=== PATIENT | male | born 1995 | race Caucasian/White ===

== ENCOUNTER 2021-10-08 13:05 | Emergency (ER) | payer BC ==
[~2021-10-08] VITALS: Ht 180.3 cm; Wt 50.8 kg
--- NOTE | 2021-10-08 13:10 | NUR ---
ER BED [address] [facility]. SOB&COUGH x 2 DAYS. SOLU MEDROL 125MG IM AND. NO SOB. NO SIGNS OF DISTRESS
[2021-10-08] MEDS ORDERED: ALBUTEROL FS 2.5 MG/3 ML VIAL.NEB CONTNEB ONE (13:30)
[2021-10-08] MEDS ORDERED: IPRATROPIUM NEB FS 0.5 MG/2.5 ML AMPUL.NEB NEB ONE (13:30)
[2021-10-08] MEDS ORDERED: predniSONE 20 MG TABLET PO ONE (13:30)
[2021-10-08] MEDS ORDERED: predniSONE 20 MG TABLET ONE (13:30)
[2021-10-08] MEDS ORDERED: ALBUTEROL FS 2.5 MG/3 ML VIAL.NEB ONE (13:32)
[2021-10-08] MEDS ORDERED: IPRATROPIUM NEB FS 0.5 MG/2.5 ML AMPUL.NEB ONE (13:33)
--- NOTE | 2021-10-08 13:50 | NUR ---
RT AT BESIDE BEGAN NEB TREATMENT
--- NOTE | 2021-10-08 14:20 | NUR ---
COVID PCR DONE SENT TO LAB
[2021-10-08] MEDS ORDERED: ALBU18HF2 INH (14:24)
[2021-10-08] MEDS ORDERED: PRED20TA PO (14:24)
[2021-10-08 15:13] VITALS: BP 132/78
--- NOTE | 2021-10-08 15:13 | NUR ---
Patient discharged to home in stable condition. Written and verbal after care instructions given. Patient verbalizes understanding of instruction.
== END 2021-10-08 15:14 | disposition home or self-care (01) ==
LOC: ER 13:07
DX: J06.9 Acute upper respiratory infection, unspecified (principal); J45.901 Unspecified asthma with (acute) exacerbation; B97.89 Other viral agents as the cause of diseases classified elsewhere; R51.9 Headache, unspecified; Z20.822 Contact with and (suspected) exposure to COVID-19
CPT/HCPCS: 71045; 94644; 99284; C9803; J7512; U0003

== ENCOUNTER 2022-07-08 00:58 | Emergency (ER) | payer BC ==
[~2022-07-08] VITALS: Ht 180.3 cm; Wt 54.4 kg
[~2022-07-08 00:58] MED LIST: ALBU18HF2 INH; PRED20TA PO
--- NOTE | 2022-07-08 01:20 | NUR ---
BIBF THIS 26/M WITH CC OF ASTHMA ATTACK ALL DAY TODAY, SATURATING 92% ON RA. +WHEEZING. PT IS AAOX4. ABLE TO MAKE NEEDS KNOWN. PLACED COMFORTABLY IN BED. VITALS CHECKED.
--- NOTE | 2022-07-08 01:23 | NUR ---
SEEN BY MD AT BEDSIDE.
[2022-07-08] MEDS ORDERED: ALBUTEROL FS 2.5 MG/3 ML VIAL.NEB NEB ONE ×2 (01:30→03:00)
[2022-07-08] MEDS ORDERED: predniSONE 20 MG TABLET PO ONE (01:30)
[2022-07-08] MEDS ORDERED: IPRATROPIUM NEB FS 0.5 MG/2.5 ML AMPUL.NEB NEB ONE ×2 (01:30→03:00)
[2022-07-08] MEDS ORDERED: predniSONE 20 MG TABLET ONE (01:30)
[2022-07-08] MEDS ORDERED: IPRATROPIUM NEB FS 0.5 MG/2.5 ML AMPUL.NEB ONE ×2 (01:43→02:25)
[2022-07-08] MEDS ORDERED: ALBUTEROL FS 2.5 MG/3 ML VIAL.NEB ONE ×2 (01:43→02:25)
[2022-07-08] MEDS ORDERED: IPRA3AMP23 IH (03:26)
[2022-07-08] MEDS ORDERED: PRED50TA PO (03:26)
[2022-07-08] MEDS ORDERED: ALBU18HF2 INH (03:26)
[2022-07-08 03:33] VITALS: BP 137/95
== END 2022-07-08 03:33 | disposition home or self-care (01) ==
LOC: ER 01:03
DX: J45.901 Unspecified asthma with (acute) exacerbation (principal); J45.909 Unspecified asthma, uncomplicated; Z79.899 Other long term (current) drug therapy
CPT/HCPCS: 99285; 94799; 94640 ×2; J7512